=== PATIENT | female | born 1930 | race Caucasian/White ===

== ENCOUNTER 2017-08-27 23:17 | Observation (INO) | payer MEDICARE, OTHER ==
[~2017-08-27] VITALS: Ht 160 cm; Wt 84.5 kg
[2017-08-27 23:22] VITALS: BP 140/84; PULSE 123; RESP 24; TEMP 100; O2SAT 91
[2017-08-27 23:36] VITALS: BP 176/107; PULSE 108; RESP 26; O2SAT 98
[2017-08-27 23:40] VITALS: RESP 26; O2SAT 98
--- NOTE | 2017-08-27 23:44 | PD ---
HPI . Dyspnea Chief Complaint: Respiratory Symptoms Time Seen by Provider: 23:32 Travel History International Travel<30 days: No Contact w/Intl Traveler<30days: No Traveled to known affect area: No History of Present Illness HPI Patient presents with a chief complaint of dyspnea. Onset was 5 days ago. It has become acutely worse today. She has a history of asthma. She has an albuterol inhaler that she has used twice today. She reports no relief with albuterol. She does have a cough but states that it is nonproductive. She did not realize she is running a little bit of a fever. Severity is moderate. The patient reports no known history of an irregular heartbeat. PFSH Past Medical History Asthma: Yes Diabetes: Yes (ON METFORMIN) Patient Takes Glucophage: Yes Respiratory: Yes (ASTHMA) Tetanus Vaccination: > 5 Years Influenza Vaccination: No ?: Not Past Surgical History Hysterectomy: Yes Social History Alcohol Use: No Tobacco Use: No Substance Use: No Allergies-Medications (Allergen,Severity, Reaction): Coded Allergies: Penicillins (Verified Allergy, Severe, HIVES, 08/27/17) Sulfa (Sulfonamide Antibiotics) (Verified Allergy, Severe, ANGIOEDEMA, ) Review of Systems Except as stated in HPI: all other systems reviewed are Neg General / Constitutional: Positive: Fever Respiratory: Positive: Cough, Shortness of Breath, Wheezing Physical Exam Narrative Vital Signs Date Time Temp Pulse Resp B/P (MAP) Pulse Ox O2 Delivery O2 Flow Rate FiO2 08/27/17 23:40 98 Nasal Cannula 2.00 08/27/17 23:36 108 26 98 Nasal Cannula 2.00 08/27/17 23:36 108 26 176/107 (130) 98 Nasal Cannula 2.00 08/27/17 23:22 100.0 123 24 140/84 (102) 91 GENERAL: Awake and alert. SKIN: warm/dry. HEAD: Normocephalic. Atraumatic. EYES: Pupils equal and round. No scleral icterus. No injection or drainage. ENT: No nasal bleeding or discharge. Mucous membranes pink and moist. NECK: Trachea midline. Full range of motion without pain.. CARDIOVASCULAR: Irregularly irregular rate and rhythm. RESPIRATORY: No accessory muscle use. Sats were 91% on room air. She has diminished air movement throughout with diffuse wheezing. MUSCULOSKELETAL: No obvious deformities. NEUROLOGICAL: Awake and alert. No obvious cranial nerve deficits. Motor grossly within normal limits. Normal speech. PSYCHIATRIC: Appropriate mood and affect; insight and judgment normal. Data Data Last Documented VS Vital Signs Date Time Temp Pulse Resp B/P (MAP) Pulse Ox O2 Delivery O2 Flow Rate FiO2 08/28/17 00:50 108 20 114/76 (89) 08/27/17 23:48 97 Nasal Cannula 2.00 08/27/17 23:22 100.0 Orders Orders Basic Metabolic Panel (Bmp) (08/27/17 23:35) Complete Blood Count With Diff (08/27/17 23:35) Ecg Monitoring (08/27/17 23:35) Iv Access Insert/Monitor (08/27/17 23:35) Oximetry (08/27/17 23:35) Oxygen Administration (08/27/17 23:35) Methylprednisolone So Succ Inj (Solumedr (08/27/17 23:45) Albuterol-Ipratropium Neb (Duoneb Neb) (08/27/17 23:45) Sodium Chloride 0.9% Flush (Ns Flush) (08/27/17 23:45) Electrocardiogram (08/28/17 ) Metoprolol Tartrate Inj (Lopressor Inj) (08/28/17 00:30) B-Type Natriuretic Peptide (08/28/17 00:26) Troponin I (08/27/17 23:40) Chest, Single Ap (08/27/17 23:35) Admit Order (Ed Use Only) (08/28/17 ) Substitute Crossing Guard / Telemetry AURY.Q8H (08/28/17 02:19) Vital Signs (Adult) Q4H (08/28/17 02:19) Diet Heart Healthy (08/28/17 Breakfast) Activity Oob With Assistance (08/28/17 02:19) Notify Dr: Other (08/28/17 02:19) Labs Laboratory Tests Test 08/27/17 23:40 08/28/17 00:36 White Blood Count 7.3 TH/MM3 Red Blood Count 4.86 MIL/MM3 Hemoglobin 13.9 GM/DL Hematocrit 41.6 % Mean Corpuscular Volume 85.7 FL Mean Corpuscular Hemoglobin 28.6 PG Mean Corpuscular Hemoglobin Concent 33.4 % Red Cell Distribution Width 13.8 % Platelet Count 179 TH/MM3 Mean Platelet Volume 9.3 FL Neutrophils (%) (Auto) 46.0 % Lymphocytes (%) (Auto) 41.3 % Monocytes (%) (Auto) 9.5 % Eosinophils (%) (Auto) 0.9 % Basophils (%) (Auto) 2.3 % Neutrophils # (Auto) 3.3 TH/MM3 Lymphocytes # (Auto) 3.0 TH/MM3 Monocytes # (Auto) 0.7 TH/MM3 Eosinophils # (Auto) 0.1 TH/MM3 Basophils # (Auto) 0.2 TH/MM3 CBC Comment DIFF FINAL Differential Comment Blood Urea Nitrogen 13 MG/DL Creatinine 0.78 MG/DL Random Glucose 207 MG/DL Calcium Level 9.4 MG/DL Sodium Level 136 MEQ/L Potassium Level 3.9 MEQ/L Chloride Level 101 MEQ/L Carbon Dioxide Level 28.5 MEQ/L Anion Gap 7 MEQ/L Estimat Glomerular Filtration Rate 70 ML/MIN Troponin I LESS THAN 0.02 NG/ML B-Type Natriuretic Peptide 118 PG/ML MDM Medical Decision Making Medical Screen Exam Complete: Yes Emergency Medical Condition: Yes Interpretation(s) EKG shows atrial fibrillation with a rapid ventricular response. Differential Diagnosis Differential diagnosis of dyspnea includes but is not limited to congestive heart failure, pneumonia, wheezing, pneumothorax, pulmonary embolism Narrative Course This is a patient with a history of asthma who presents to us complaining with increased dyspnea today. She has used her albuterol inhaler twice at home today. On exam, her initial room air sats were 91%. She has decreased air movement and diffuse wheezing. An IV has been started. Solu-Medrol and stacked nebs have been ordered. The patient has been given metoprolol for her tachycardia. Heart rate is now between 100 and 110. The patient reports her breathing is much improved. Her aeration is much better. She wants to go home. However, the patient has no known history of atrial fibrillation. And, her oxygen saturation was only 91% on arrival. I believe that she needs to stay at least for observation. Critical Care Narrative Aggregate critical care time was 30 minutes. Time to perform other separately billable procedures was not included in the critical care time. My time did not include minutes spent treating any other patients simultaneously or on activities that did not directly contribute to the patient's treatment. The services I provided to this patient were to treat and/or prevent clinically significant deterioration due to respiratory distress, atrial fibrillation with rapid ventricular response I provided critical care services requiring my management, as noted below: Chart data review, documentation time, medication orders and management, vital sign assessments/reviewing monitor data, ordering and reviewing lab tests, ordering and interpreting/reviewing x-rays and diagnostic studies, care of the patient and discussion of the patient with the admitting physicians Physician Communication Physician Communication Dr. Olvera Diagnosis Primary Impression: Dyspnea Qualified Codes: R06.00 - Dyspnea, unspecified Additional Impression: Atrial fibrillation with RVR Admitting Information Admitting Physician Requests: Observation Condition: Stable Laura Asencio MD August 27, 2017 23:44
[2017-08-27] MEDS ORDERED: SODIUM CHLORIDE 0.9% FLUSH 10 ML FLUSH IVF PRN (23:45)
[2017-08-27] MEDS ORDERED: methylPREDNISolone SOD SUCC 125 MG/2 ML VIAL IV PUSH ONE (23:45)
[2017-08-27 23:46] VITALS: BP 170/82
[2017-08-27 23:48] VITALS: O2SAT 97
[2017-08-27] MEDS: RESP: ALBUTEROL 2.5 MG/IPRATROPIUM 0.5 MG NEB (SCH) INH ×2 (23:48→23:57)
[2017-08-27 23:58] LABS: AUTOMATED NEUTROPHIL # 3.3 TH/MM3 (1.8-7.7); BASOPHIL # 0.2 TH/MM3 (0-0.2); BASOPHIL % 2.3 % (0.0-2.0); EOSINOPHIL # 0.1 TH/MM3 (0-0.4); EOSINOPHIL % 0.9 % (0.0-4.0); HEMATOCRIT 41.6 % (35.0-46.0); HEMOGLOBIN 13.9 GM/DL (11.6-15.3); LYMPH % 41.3 % (9.0-44.0); MEAN CELL VOLUME 85.7 FL (80.0-100.0); MEAN CORPUSCULAR HEMOGLOBIN 28.6 PG (27.0-34.0); MEAN CORPUSCULAR HGB CONC 33.4 % (32.0-36.0); MEAN PLATELET VOLUME 9.3 FL (7.0-11.0); MONO % 9.5 % (0.0-8.0); MONOCYTE # 0.7 TH/MM3 (0-0.9); PLATELET COUNT 179 TH/MM3 (150-450); RED BLOOD COUNT 4.86 MIL/MM3 (4.00-5.30); RED CELL DISTRIBUTION WIDTH 13.8 % (11.6-17.2); WHITE BLOOD COUNT 7.3 TH/MM3 (4.0-11.0)
[2017-08-28] VITALS (12 sets, daily range): BP systolic 114–184; BP diastolic 57–90; PULSE 81–118; RESP 18–20; TEMP 96.3–97.3; O2SAT 93–97
[2017-08-28 00:06] LABS: CHLORIDE 101 MEQ/L (98-107); SODIUM (NA) 136 MEQ/L (136-145)
[2017-08-28 00:08] LABS: CALCIUM 9.4 MG/DL (8.5-10.1)
[2017-08-28 00:09] LABS: BICARBONATE 28.5 MEQ/L (21.0-32.0); BLOOD UREA NITROGEN 13 MG/DL (7-18); GLUCOSE,RANDOM 207 MG/DL (74-106)
[2017-08-28 00:12] LABS: CREATININE 0.78 MG/DL (0.50-1.00); GLOMERULAR FILTRATION RATE 70 ML/MIN (>89)
[2017-08-28] MEDS ORDERED: METOPROLOL TARTRATE 5 MG/5 ML VIAL IV PUSH PRN (00:30)
--- NOTE | 2017-08-28 00:56 | RADRPT ---
EXAM DATE: 08/28/2017 12:50 AM EDT AGE/SEX: 86 years / Female INDICATIONS: Short of breath. CLINICAL DATA: This is the patient's initial encounter. Patient reports that signs and symptoms have been present for 1 day and indicates a pain score of 0/10. MEDICAL/SURGICAL HISTORY: None. None. COMPARISON: No prior exams available for comparison. FINDINGS: The lungs are clear without infiltrate, nodule, or mass. There is no appreciable pleural effusion for technique. Heart and mediastinum are unremarkable. CONCLUSION: No acute cardiopulmonary disease. Electronically signed by: Yovany Romero MD 08/28/2017 12:54 AM EDT
[2017-08-28 00:57] LABS: TROPONIN I LESS THAN 0.02 NG/ML (0.02-0.05)
[2017-08-28] MEDS: RESP: ALBUTEROL 2.5 MG/IPRATROPIUM 0.5 MG NEB (SCH) INH (01:45)
[2017-08-28] MEDS ORDERED: SODIUM CHLORIDE 0.9% FLUSH 10 ML FLUSH IV FLUSH PRN (02:30)
[2017-08-28] MEDS ORDERED: GLUCAGON 1 MG/ML VIAL OTHER PRN (08:30)
[2017-08-28] MEDS ORDERED: DEXTROSE 50% IN WATER 50 ML VIAL(D50) IV PUSH PRN (08:30)
--- NOTE | 2017-08-28 08:40 | MB ---
cc: Stefanie King MD DATE: 08/28/2017 REASON FOR CONSULTATION: New onset atrial fibrillation. HISTORY OF PRESENT ILLNESS: Ms. Overton is an 86-year-old female who does have a history of diabetes and asthma. She presented with shortness of breath that progressed over the last several days. She denies any chest pain. She was found to have new onset of atrial fibrillation with a rapid ventricular rate. The patient is feeling better this morning. PAST MEDICAL HISTORY: Significant for asthma and diabetes. She denies any history of hypertension, hyperlipidemia, CVA or PAD. SOCIAL HISTORY: The patient does not drink or smoke. She is . ALLERGIES: PENICILLIN AND SULFA. REVIEW OF SYSTEMS: Except as mentioned in the HPI, all 12 systems are negative. PHYSICAL EXAMINATION: VITAL SIGNS: Temperature 97.3, 102, 18, 133/63. GENERAL: She is an overweight female who is in no apparent distress. NECK: Free from JVD. LUNGS: Bilaterally clear to auscultation. CARDIOVASCULAR: She has an irregularly irregular rhythm. No murmurs, rubs or gallops are appreciated. ABDOMEN: Soft. EXTREMITIES: Free from edema. LABORATORY DATA: Significant for a creatinine of 0.78. Her troponin is less than 0.02 and BNP is 118. Telemetry shows atrial fibrillation at 100 beats a minute. IMPRESSION: New onset atrial fibrillation - the patient does have a CHADS-VASc score of 4 with a point for female, diabetic and 2 points for age over 75. I am going to start Cardizem as I feel that would be better tolerated with her history of asthma. This will be used for rate control. As well, Eliquis would be a reasonable choice for her. They are aware there is no reversal agent at this time. The Pradaxa is not felt appropriate as she is over 80. I would like to get an echo today and a stress test. If these studies are essentially normal and her heart rate is controlled, it is reasonable for her to be discharged home. Stefanie King MD BAB/TL , 08:26 AM , 08:38 AM
[2017-08-28] MEDS ORDERED: SODIUM CHLORIDE 0.9% FLUSH 10 ML FLUSH IV FLUSH SCH (09:00)
[2017-08-28] MEDS ORDERED: DILTIAZEM-CD 120 MG CAP ER PO SCH (09:00)
[2017-08-28] MEDS ORDERED: APIXABAN 5 MG TABLET PO SCH (09:00)
[2017-08-28] MEDS ORDERED: METOPROLOL TARTRATE 25 MG TAB PO SCH (09:00)
[2017-08-28] MEDS: INSULIN ASPART SUPPLEMENTAL SCALE SQ SCH ×2 (09:13→12:27)
[2017-08-28] MEDS ORDERED: methylPREDNISolone SOD SUCC 40 MG/1 ML VIAL IV PUSH SCH ×2 (09:15→18:00)
--- NOTE | 2017-08-28 09:45 | HHI.HP ---
HPI Service [facility] Primary Care Physician Non-Staff Admission Diagnosis AF with RVR, asthma with acute exacerbation Diagnoses: (1) Atrial fibrillation with RVR (2) Dyspnea Chief Complaint: Shortness of breath Travel History International Travel<30 Days: No Contact w/Intl Traveler <30 Da: No Traveled to Known Affected Are: No History of Present Illness Written by Gabi Krause, acting as scribe for Dr. Gonzalez on 08/28/17 at 09:44. This is a pleasant 86-year-old female patient with a known medical history of asthma and diabetes who presented to the ED with complaints of shortness of breath 5 days. Patient states that over the course of the last week she has developed chest congestion as well as head congestion, states she does have a history of asthma, has not had an exacerbation for several years now. She states that since she has been feeling short of breath she has been using her albuterol inhaler twice a day, which has not been effective in relieving her symptoms. She also complains of a cough that is nonproductive. Denies any complaints of fever, chills, abdominal pain, nausea, vomiting, diarrhea or dysuria. Patient denies any chest pain. Denies any recent antibiotic or steroid use. Denies any history of cardiovascular disease, does not follow with a lock tender and has not ever underwent a cardiac stress test. Patient and her are from [facility] in [facility], follows with her primary care doctor with no reports of any changes to her medicines. Review of Systems Constitutional: COMPLAINS OF: Fatigue, DENIES: Diaphoretic episodes, Fever, Chills Respiratory: COMPLAINS OF: Shortness of breath, DENIES: Cough, Sputum production Cardiovascular: DENIES: Chest pain, Palpitations, Lower Extremity Edema, Orthopnea Gastrointestinal: DENIES: Abdominal pain, Black stools, Bloody stools, Constipation, Diarrhea, Nausea, Vomiting Musculoskeletal: DENIES: Joint pain Hematologic/lymphatic: DENIES: Bruising Immunologic/allergic: DENIES: Eczema Neurologic: DENIES: Abnormal gait Psychiatric: COMPLAINS OF: Anxiety Except as stated in HPI: all other systems reviewed are Neg Past Family Social History Past Medical History Asthma Diabetes Past Surgical History Cholecystectomy Hysterectomy Bilateral rotator cuff Unspecified wrist surgery 3 Bladder sling Reported Medications Please see medicine list Allergies: Coded Allergies: Penicillins (Verified Allergy, Severe, HIVES, 08/27/17) Sulfa (Sulfonamide Antibiotics) (Verified Allergy, Severe, ANGIOEDEMA, ) Active Ordered Medications Current Medications Medications (Trade) Dose Ordered Sig/Darlene Route Start Time Stop Time Status Last Admin (Lopressor Inj) 5 mg Q5M PRN IV PUSH 08/28/17 00:30 08/28/17 00:30 (NS Flush) 2 ml UNSCH PRN IV FLUSH 08/28/17 02:30 (NS Flush) 2 ml BID IV FLUSH 08/28/17 09:00 08/28/17 09:14 (D50w (Vial) Inj) 50 ml UNSCH PRN IV PUSH 08/28/17 08:30 (Glucagon Inj) 1 mg UNSCH PRN OTHER 08/28/17 08:30 (NovoLOG SUPPLEMENTAL SCALE) 1 ACHS SLIDING SCALE SQ 08/28/17 09:00 08/28/17 09:13 (Cardizem Cd) 120 mg DAILY PO 08/28/17 09:00 08/28/17 09:14 (Eliquis) 5 mg BID PO 08/28/17 09:00 (SoluMEDROL INJ) 40 mg Q8HR IV PUSH 08/28/17 09:15 Family History Paternal medical history significant for cardiovascular disease. Social History Patient denies any tobacco, alcohol or illicit drug use. Physical Exam Vital Signs Vital Signs Date Time Temp Pulse Resp B/P (MAP) Pulse Ox O2 Delivery O2 Flow Rate FiO2 08/28/17 09:18 93 08/28/17 08:21 96 Nasal Cannula 2.00 08/28/17 03:24 97.3 102 18 133/63 (86) 96 08/28/17 03:23 107 08/28/17 03:05 08/28/17 02:33 110 142/72 (95) 08/28/17 00:50 108 20 114/76 (89) 08/28/17 00:41 118 20 136/57 (83) 08/28/17 00:12 143/72 (95) 08/27/17 23:48 97 Nasal Cannula 2.00 08/27/17 23:46 170/82 (111) 08/27/17 23:40 98 Nasal Cannula 2.00 08/27/17 23:40 26 98 Nasal Cannula 2.00 08/27/17 23:36 108 26 98 Nasal Cannula 2.00 08/27/17 23:36 108 26 176/107 (130) 98 Nasal Cannula 2.00 08/27/17 23:22 100.0 123 24 140/84 (102) 91 Physical Exam GENERAL: Well-developed, well-nourished patient in NAD. SKIN: Warm and dry. No rash. HEAD: Normocephalic. Atraumatic. EYES: Pupils equal and round. No scleral icterus. No injection or drainage. ENT: No nasal bleeding or discharge. Mucous membranes pink and moist. NECK: Supple. Trachea midline. CARDIOVASCULAR: Irregularly irregular rhythm. No murmur appreciated. RESPIRATORY: No accessory muscle use. Audible expiratory wheezing to left posterior lung kearns. Breath sounds equal bilaterally. GASTROINTESTINAL: Abdomen soft, non-tender, nondistended. Normoactive bowel sounds x4. MUSCULOSKELETAL: No obvious deformities. Extremities without clubbing, cyanosis , or edema. NEUROLOGICAL: Awake and alert. No obvious cranial nerve deficits. Motor grossly within normal limits. 5/5 muscle strength in bilateral upper and lower extremities. Normal speech. PSYCHIATRIC: Appropriate mood and affect; insight and judgment normal. Laboratory Laboratory Tests Test 08/27/17 23:40 08/28/17 00:36 White Blood Count 7.3 Red Blood Count 4.86 Hemoglobin 13.9 Hematocrit 41.6 Mean Corpuscular Volume 85.7 Mean Corpuscular Hemoglobin 28.6 Mean Corpuscular Hemoglobin Concent 33.4 Red Cell Distribution Width 13.8 Platelet Count 179 Mean Platelet Volume 9.3 Neutrophils (%) (Auto) 46.0 Lymphocytes (%) (Auto) 41.3 Monocytes (%) (Auto) 9.5 Eosinophils (%) (Auto) 0.9 Basophils (%) (Auto) 2.3 Neutrophils # (Auto) 3.3 Lymphocytes # (Auto) 3.0 Monocytes # (Auto) 0.7 Eosinophils # (Auto) 0.1 Basophils # (Auto) 0.2 CBC Comment DIFF FINAL Differential Comment Blood Urea Nitrogen 13 Creatinine 0.78 Random Glucose 207 Calcium Level 9.4 Sodium Level 136 Potassium Level 3.9 Chloride Level 101 Carbon Dioxide Level 28.5 Anion Gap 7 Estimat Glomerular Filtration Rate 70 Troponin I LESS THAN 0.02 Thyroid Stimulating Hormone 3rd Gen 4.150 B-Type Natriuretic Peptide 118 Result Diagram: 08/27/170 08/27/17 2340 Imaging Last Impressions Chest X-Ray 08/27/17 6485 Signed Impressions: CONCLUSION: No acute cardiopulmonary disease. Septic Shock Reassessment Septic shock perfusion: reassessment completed Caprini VTE Risk Assessment Caprini VTE Risk Assessment: Mod/High Risk (score >= 2) Caprini Risk Assessment Model Point Value = 1 Point Value = 2 Point Value = 3 Point Value = 5 Age 41-60 Minor surgery BMI > 25 kg/m2 Swollen legs Varicose veins or History of unexplained or recurrent spontaneous Oral contraceptives or hormone replacement Sepsis (< 1 month) Serious lung disease, including pneumonia (< 1 month) Abnormal pulmonary function Acute myocardial infarction Congestive heart failure (< 1 month) History of inflammatory bowel disease Medical patient at bed rest Age 61-74 Arthroscopic surgery Major open surgery (> 45 min) Laparoscopic surgery (> 45 min) Malignancy Confined to bed (> 72 hours) Immobilizing plaster cast Central venous access Age >= 75 History of VTE Family history of VTE Factor V Leiden Prothrombin [id number] Lupus anticoagulant Anticardiolipin antibodies Elevated serum homocysteine Heparin-induced thrombocytopenia Other congenital or acquired thrombophilia Stroke (< 1 month) Elective arthroplasty Hip, pelvis, or leg fracture Acute spinal cord injury (< 1 month) Prophylaxis Regimen Total Risk Factor Score Risk Level Prophylaxis Regimen 0-1 Low Early ambulation 2 Moderate Order ONE of the following: *Sequential Compression Device (SCD) *Heparin 5000 units SQ BID 3-4 Higher Order ONE of the following medications: *Heparin 5000 units SQ TID *Enoxaparin/Lovenox 40 mg SQ daily (WT < 150 kg, CrCl > 30 mL/min) *Enoxaparin/Lovenox 30 mg SQ daily (WT < 150 kg, CrCl > 10-29 mL/min) *Enoxaparin/Lovenox 30 mg SQ BID (WT < 150 kg, CrCl > 30 mL/min) AND/OR *Sequential Compression Device (SCD) 5 or more Highest Order ONE of the following medications: *Heparin 5000 units SQ TID (Preferred with Epidurals) *Enoxaparin/Lovenox 40 mg SQ daily (WT < 150 kg, CrCl > 30 mL/min) *Enoxaparin/Lovenox 30 mg SQ daily (WT < 150 kg, CrCl > 10-29 mL/min) *Enoxaparin/Lovenox 30 mg SQ BID (WT < 150 kg, CrCl > 30 mL/min) AND *Sequential Compression Device (SCD) Assessment and Plan Assessment and Plan This is a pleasant 86-year-old female patient with a known medical history of asthma and diabetes who presented to the ED with complaints of shortness of breath 5 days. Patient states that over the course of the last week she has developed chest congestion as well as head congestion, states she does have a history of asthma, has not had an exacerbation for several years now. New-onset atrial fibrillation with RVR - Patient presented to the ED with EKG showing atrial fibrillation with RVR heart rate in the 120s. Was given metoprolol 5 mg IV in ED as well as started on metoprolol 25 mg p.o. twice daily. - CHADS-VASc schore of 4 with female, diabetes and age risk factors. - Continued on cardiac telemetry, no reports of any controlled rates overnight. Heart rate is currently 102. - Cardiology was consulted, appreciate input and recommendations. Metoprolol was switched to Cardizem p.o. as well as placed on Eliquis for anticoagulation. - Lexiscan has been ordered and pending as well as an echocardiogram. - Further hospitalization treatment plan will depend on Lexiscan results as well as echocardiogram. History of asthma with present exacerbation - Patient with audible expiratory wheezes and hypoxia upon presentation. - Initially required supplemental O2 with 2LNC. Patient is presently on room air with oxygen saturation 93%. - Chest x-ray showing no acute cardiopulmonary disease. - Was given methylprednisone 125 mg 1 as well as started on DuoNeb nebulizer in ED. - Will continue home inhalers. Start on low-dose Solu-Medrol IV and switch to p.o. upon discharge. DVT prophylaxis: SCDs. Eliquis. This note was transcribed by ivy Krause. I, Dr. Ernesto Gonzalez personally performed the history, physical exam, and medical decision making; and confirmed the accuracy of the information in the transcribed note. Authenticated by Dr. Ernesto Gonzalez on 08/28/17 at 09:44. Code Status Full code Discussed Condition With Patient, Problem Qualifiers (1) Dyspnea: Qualified Codes: R06.00 - Dyspnea, unspecified Gabi Krause August 28, 2017 09:45 Ernesto Gonzalez MD August 28, 2017 09:45
[2017-08-28] MEDS ORDERED: LEVO.075 PO (10:30)
[2017-08-28] MEDS ORDERED: ALBUAER3 INH (10:30)
[2017-08-28] MEDS ORDERED: METF500T4 PO (10:30)
[2017-08-28] MEDS ORDERED: FLUT15.87 NASAL (10:30)
[2017-08-28] MEDS ORDERED: FLUTI110I INH (10:30)
[2017-08-28] MEDS ORDERED: REGADENOSON INJ 0.4 MG/5 ML SYR IV ONE (13:18)
[2017-08-28] MEDS ORDERED: APIX5TAB PO (13:47)
[2017-08-28] MEDS ORDERED: DILT120C50 PO (13:47)
[2017-08-28] MEDS ORDERED: PRED20 PO (13:47)
--- NOTE | 2017-08-28 13:47 | HHI.DCPOC ---
Discharge Care Plan Diagnosis: (1) Dyspnea (2) Atrial fibrillation with RVR Goals to Promote Your Health * To prevent worsening of your condition and complications * To maintain your health at the optimal level Directions to Meet Your Goals Take your medications as prescribed Follow your dietary instruction Follow activity as directed Keep your appointments as scheduled Take your immunizations and boosters as scheduled If your symptoms worsen call your PCP, if no PCP go to Urgent Care Center or Emergency Room Smoking is Dangerous to Your Health. Avoid second hand smoke Call the 24-hour hour crisis hotline for domestic abuse at Gabi Krause August 28, 2017 13:47
--- NOTE | 2017-08-28 14:05 | EKG ---
Date Performed: 08/28/2017 Time Performed: 00:18:52 PTAGE: 86 years EKG: ATRIAL FIBRILLATION WITH RAPID VENTRICULAR RESPONSE MARKED LEFT AXIS DEVIATION PATTERN CONS ISTENT WITH PULMONARY DISEASE MINIMAL VOLTAGE CRITERIA FOR LVH, CONSIDER NORMAL VARIANT ST DEVIATION AND MODERATE T-WAVE ABNORMALITY, CONSIDER LATERAL ISCHEMIA ABNORMAL ECG NO PREVIOUS TRACING DOCTOR: Maximilian Capellan Interpretating Date/Time 08/28/2017 14:03:28
--- NOTE | 2017-08-28 14:18 | RADRPT ---
EXAM DATE: 08/28/2017 2:12 PM EDT AGE/SEX: 86 years / Female INDICATIONS:Atrial Fibrillation. . Dyspnea. CLINICAL DATA: This is the patient's initial encounter. Patient reports that signs and symptoms have been present for 1 day and indicates a pain score of 0/10. MEDICAL/SURGICAL HISTORY: Diabetes mellitus type II. Asthma. Cholecystectomy. Hysterectomy. B ilateral shoulder. COMPARISON: No prior [facility] exams available for comparison. DOSE: 8.5 mCi Tc 99m Myoview at rest 25.4 mCi [id number] at stress 0.4 mg Lexiscan STRESS SYMPTOMS: Stomach pressure. EJECTION FRACTION: 51 % TECHNIQUE: The patient underwent pharmacologic stress with infusion of prescribed dose. Continuous ECG tracing was monitored during stress. Gated SPECT imaging was performed after stress and conventi onal SPECT imaging was performed at rest. The examination was performed on a SPECT/CT scanner, both attenuation and non-corrected datasets were reviewed. FINDINGS: Distribution: The maximum perfused segment at stress is in the anterolateral wall. Perfusion Study: The pattern of perfusion at stress is within normal limits. Gated Study: There are intact wall motion and wall thickening without hypokinetic or dyskinetic segm ents. The ejection fraction is calculated at 51%. RISK CATEGORY: Low (<1% Annual Motality Rate) CONCLUSION: 1. No reversible perfusion defect to indicate stress-induced myocardial ischemia identified. 2. The ejection fraction is within the range of normal. Electronically signed by: Paul Fernandez MD 08/28/2017 2:17 PM EDT
--- NOTE | 2017-08-28 15:03 | HHI.PR ---
Addendum to Inpatient Note Addendum Reason: Additional Documentation Additional Information Discharge patient to home Condition on discharge: Improved Regular Diet as tolerated Ad Tami activity Rx written: See EMR Follow-up with primary care physician in 1 week Follow-up with cardiology Ernesto Gonzalez MD August 28, 2017 15:03
--- NOTE | 2017-08-28 17:48 | ECHRPT ---
Indication: ATRIAL FIB/FLUTTER CONCLUSIONS Normal left ventricular size. Mild concentric left ventricular hypertrophy. The left ventricular systolic function is normal with an estimated ejection fraction in the range of 55-60%. [id number] mitral valve regurgitation. There is mild tricuspid valve regurgitation. The estimated pulmonary arterial pressure is 43.2 mmHg. A prominent epicardial fat pad is present. BP: 162 / 90 HR: 87 Rhythm: Sinus MEASUREMENTS (Male / Female) Normal Values Technical Quality:Fair 2D ECHO LV Diastolic Diameter PLAX 4.5 cm 4.2 - 5.9 / 3.9 - 5.3 cm LV Systolic Diameter PLAX 3.4 cm IVS Diastolic Thickness 1.0 cm 0.6 - 1.0 / 0.6 - 0.9 cm LVPW Diastolic Thickness 1.1 cm 0.6 - 1.0 / 0.6 - 0.9 cm LV Relative Wall Thickness 0.5 RV Internal Dim ED PLAX 2.0 cm LVOT Diameter 1.9 cm Aortic Root Diameter 3.3 cm LA Systolic Diameter LX 3.9 cm 3.0 - 4.0 / 2.7 - 3.8 cm M-MODE AV Cusp Separation MM 1.9 cm DOPPLER LVOT Peak Velocity 63.5 cm/s LVOT Peak Gradient 1.6 mmHg LVOT Velocity Time Integral 12.5 cm Mitral E Point Velocity 105.2 cm/s LV E' Lateral Velocity 10.9 cm/s Mitral E to LV E' Lateral Ratio 9.6 LV E' Septal Velocity 7.5 cm/s Mitral E to LV E' Septal Ratio 14.1 TR Peak Velocity 288.0 cm/s TR Peak Gradient 33.2 mmHg Right Atrial Pressure 10.0 mmHg Pulmonary Artery Systolic Pressu 43.2 mmHg Right Ventricular Systolic Press 43.2 mmHg PV Peak Velocity 91.0 cm/s PV Peak Gradient 3.3 mmHg FINDINGS LEFT VENTRICLE Normal left ventricular size. Mild concentric left ventricular hypertrophy. The left ventricular systolic function is normal with an estimated ejection fraction in the range of 55-60%. RIGHT VENTRICLE Normal right ventricular size and systolic function. LEFT ATRIUM The left atrial size is normal. RIGHT ATRIUM The right atrial size is normal. ATRIAL SEPTUM No atrial level shunt is demonstrated by color flow Doppler interrogation. AORTA The aortic root and proximal ascending aorta are normal in size on limited imaging. MITRAL VALVE [id number] mitral valve regurgitation. AORTIC VALVE Trileaflet aortic valve. No aortic valve stenosis or regurgitation. TRICUSPID VALVE There is mild tricuspid valve regurgitation. The estimated pulmonary arterial pressure is 43.2 mmHg. PULMONARY VALVE No pulmonary valve regurgitation or stenosis. VESSELS The inferior vena cava is normal in size. PERICARDIUM No pericardial effusion. A prominent epicardial fat pad is present. Michael Shea MD, FACC, [facility] [place] (Electronically Signed) Final Date:28 Aug 2017 17:48
== END 2017-08-28 17:08 | disposition home or self-care (01) ==
LOC: PHED 23:17 → PHEDA 08-28 02:22 → PH3A 08-28 02:59
PROVIDERS: ADMIT Hospitalist; ATTEND Hospitalist
DX: R06.00 Dyspnea, unspecified (principal); I48.91 Unspecified atrial fibrillation; J45.901 Unspecified asthma with (acute) exacerbation; R05 Cough; E11.9 Type 2 diabetes mellitus without complications; Z79.84 Long term (current) use of oral hypoglycemic drugs; R09.02 Hypoxemia
CPT/HCPCS: 71045; 78452; 80048; 82948; 83880; 84439; 84443; 84484; 85025; 93005; 93017; 93306; 94640; 94664; 96372; 96374; 96375; 99291; A9502; G0378; J1815; J2785; J2920; J2930